=== PATIENT | female | born 1930 | race Caucasian/White ===

== ENCOUNTER → 2017-02-16 | Outpatient (CLI) | payer MEDICAID | END | disposition home or self-care (01) | LOC: RAD.S 02-15 11:00 | DX: J90 Pleural effusion, not elsewhere classified (principal); R91.8 Other nonspecific abnormal finding of lung field; J98.11 Atelectasis ==

== ENCOUNTER → 2017-02-23 | Outpatient (CLI) | payer MEDICAID | END | disposition home or self-care (01) | LOC: RAD.S 10:00 | DX: T85.618A Breakdown (mechanical) of other specified internal prosthetic devices, implants and grafts, initial encounter (principal) ==

== ENCOUNTER → 2017-03-17 | Outpatient (CLI) | payer MEDICAID | END | disposition home or self-care (01) | LOC: RAD.S 08:00 | DX: J90 Pleural effusion, not elsewhere classified (principal); R91.8 Other nonspecific abnormal finding of lung field; R59.0 Localized enlarged lymph nodes ==

== ENCOUNTER → 2017-03-22 | Outpatient (CLI) | payer MEDICAID | END | disposition home or self-care (01) | LOC: RAD.S 12:55 → EDSTATUS 13:00 → RAD.S 13:00 | DX: J90 Pleural effusion, not elsewhere classified (principal); R09.89 Other specified symptoms and signs involving the circulatory and respiratory systems; J18.1 Lobar pneumonia, unspecified organism ==

== ENCOUNTER 2017-04-05 13:37 | Emergency (ER) | payer MEDICAID ==
--- NOTE | 2017-04-08 09:05 | ER ---
ADMIT: 04/05/2017 RM/LOC: ER [facility] MR#: [id number] [id number] [place] [address] Emergency Room Report SEX: F AGE: 86 : 1930 DATE: 04/05/2017 TIME: 1337 hours. Please refer to my T-sheet for complete H and P. Briefly, the patient is an 86-year-old, who has a known history of myelodysplasia. She came over to have a pleural drain removed that been there a while. When the interventional radiologist pulled it out, she complained of more pain than he is used to hearing and then her oxygen sats were at 85 to 88, so he sent her to the ER for evaluation. The patient states it hurts but it always hurts. Says it does not radiate. She does not feel terribly short of breath. She is always short of breath. PHYSICAL EXAMINATION: VITAL SIGNS: Blood pressure 131/73, pulse 75, respirations 16, temp 98.1, and sat 87% to 90% on room air. GENERAL: She is in no acute distress. Very pleasant. HEENT: Grossly normal. LUNGS: Slightly coarse on the left side, but no crepitance is felt. She has a post removal site that has a compression on it. ABDOMEN: Soft. SKIN: No rash. EMERGENCY DEPARTMENT COURSE: Chest x-ray revealed no obvious large pneumothorax. We gave her a DuoNeb here. Sats were low to mid 90s and a gram of Tylenol p.o., she was feeling better. I talked to Dr. Mendoza, she knows her well. She is aware that [facility] is [facility]. ASSESSMENT: 1. Chest wall pain. 2. Status post pleural catheter removed. 3. Hypoxemia over there resolved. She may have been splinting from the occurrence of the pulmonary catheter removed. PLAN: Continue care. Use pain medications. Follow up with Dr. Mendoza. Return if worse. Paulino Pimentel MD/ raciel JOB #: [id number] CC: Paulino Pimentel MD, Attending Physician Alana Mendoza MD, Family Physician
== END 2017-04-05 16:50 | disposition home or self-care (01) ==
LOC: RAD.S 13:37 → ER 13:37 → EDSTATUS 14:00 → RAD.S 14:00 → ER 16:50
PROC: 0BP Respiratory System, Removal (ICD-10-PCS; principal; 2017-04-05)
DX: R07.89 Other chest pain (principal); I12.9 Hypertensive chronic kidney disease with stage 1 through stage 4 chronic kidney disease, or unspecified chronic kidney disease; N18.9 Chronic kidney disease, unspecified; G43.909 Migraine, unspecified, not intractable, without status migrainosus; J44.9 Chronic obstructive pulmonary disease, unspecified; Z48.03 Encounter for change or removal of drains; Z88.0 Allergy status to penicillin; Z88.8 Allergy status to other drugs, medicaments and biological substances; Z79.899 Other long term (current) drug therapy